=== PATIENT | female | born 1970 | race Asian ===

== ENCOUNTER 2018-02-12 14:53 | Outpatient (CLI) | payer OTHER ==
--- NOTE | 2018-02-13 17:27 | Mammography Report ---
Procedure Date: 02/12/2018 Accession Number: [id number] / [id number] Procedure: MGN - Screening Mammo Dig Bilat CPT Code: FULL RESULT: EXAM: Screening Mammo Dig Bilat DATE: 02/12/2018 3:13 PM CLINICAL HISTORY: 48-year-old female with history of early menses. TECHNIQUE: Bilateral CC, left laterally exaggerated CC, bilateral MLO views were obtained. COMPARISON: 08/20/2014, 01/29/2013. FINDINGS: The breasts demonstrate heterogeneously dense fibroglandular parenchyma bilaterally. No suspicious masses, clustered microcalcifications, or regions of architectural distortion are identified. IMPRESSION: Negative examination RECOMMENDATION: Routine annual screening unless otherwise clinically indicated. BIRADS CATEGORY 1: Negative STANDARD QUALIFYING STATEMENTS: 1. This examination was reviewed with the aid of Computer-Aided Detection (CAD). 2. A negative or benign imaging report should not delay biopsy if clinically suspicious findings are present. Consider surgical consultation if warrented. More than 5% of cancers are not identified by imaging. 3. Dense breasts may obscure an underlying neoplasm.
== END 2018-02-12 14:54 | disposition home or self-care (01) ==
LOC: DI.N 14:53
PROVIDERS: ATTEND Nurse Practitioner Obstetrics & Gynecology
DX: Z12.39 Encounter for other screening for malignant neoplasm of breast (principal)
CPT/HCPCS: 77067

== ENCOUNTER 2019-03-18 08:59 | Outpatient (CLI) | payer OTHER ==
--- NOTE | 2019-03-18 18:11 | XRAY Report ---
Reason: HX OF LATENT TB Procedure Date: 03/18/2019 Accession Number: [id number] / [id number] Procedure: WCP - Chest 2 View X-Ray CPT Code: 02700 FULL RESULT: EXAM: CHEST RADIOGRAPHY. EXAM DATE: 03/18/2019 09:19 AM. CLINICAL HISTORY: History of latent tuberculosis. COMPARISON: None. TECHNIQUE: 2 views. FINDINGS: Lungs/Pleura: No focal opacities evident. No pleural effusion. No pneumothorax. Normal volumes. Mediastinum: Heart and mediastinal contours are unremarkable. Other: There is a mild mid thoracic vertebral compression fracture, of uncertain chronicity. IMPRESSION: 1. No acute cardiopulmonary abnormality demonstrated. 2. Age-indeterminate mild anterior compression deformity of mid thoracic vertebral body, probably T7. 3. No evidence of active or prior tuberculosis demonstrated on this exam. RADIA
== END 2019-03-18 23:59 | disposition home or self-care (01) ==
LOC: DI.WCP 08:59 → EDSTATUS 13:37 → DI.WCP 23:59
PROVIDERS: ATTEND Family Medicine
DX: M43.8X4 Other specified deforming dorsopathies, thoracic region (principal)
CPT/HCPCS: 71046

== ENCOUNTER 2019-05-06 15:51 | Outpatient (CLI) | payer OTHER ==
--- NOTE | 2019-05-07 08:39 | Mammography Report ---
Reason: ROUTINE MAMMO Procedure Date: 05/06/2019 Accession Number: [id number] / [id number] Procedure: MGN - Screening Mammo Dig Bilat CPT Code: Final Report FULL RESULT: EXAM: Screening Mammo Dig Bilat DATE: 05/06/2019 4:15 PM CLINICAL HISTORY: Screening encounter. TECHNIQUE: (B) - Bilateral CC and MLO views were obtained. COMPARISON: 02/12/2018 through 01/29/2013. PARENCHYMAL PATTERN: (D) - The breast(s) demonstrate(s) heterogeneously dense fibroglandular parenchyma. FINDINGS: There are no suspicious masses, calcifications, or areas of distortion. IMPRESSION: Negative examination. BI-RADS category 1. RECOMMENDATION: (ANNUAL) - Recommend routine annual screening mammography. BI-RADS CATEGORY: (1) - Negative. STANDARD QUALIFYING STATEMENTS: 1. This examination was not reviewed with the aid of Computer-Aided Detection (CAD). 2. A negative or benign imaging report should not preclude biopsy if clinically suspicious findings are present. 3. Dense breasts may obscure an underlying neoplasm. 4. This examination was reviewed without the aid of 3D breast imaging (tomosynthesis).
== END 2019-05-06 15:52 | disposition home or self-care (01) ==
LOC: DI.N 15:51
DX: Z12.31 Encounter for screening mammogram for malignant neoplasm of breast (principal)
CPT/HCPCS: 77067

== ENCOUNTER 2020-08-15 08:00 | Outpatient (CLI) | payer OTHER ==
[2020-08-15 18:40] LABS: CHOL/HDL RATIO 4.2 (<4.4); CHOLESTEROL 241 mg/dL; HDL CHOLESTEROL 58 mg/dL; LDL CHOLESTEROL,CALCULATED 149 mg/dL; LDL/HDL RATIO 2.6 (<4.4); VLDL CHOLESTEROL 34 mg/dL
== END 2020-08-15 23:59 | disposition home or self-care (01) ==
LOC: LAB.WCP 08:00
PROVIDERS: ATTEND Obstetrics & Gynecology
DX: Z00.00 Encounter for general adult medical examination without abnormal findings (principal)
CPT/HCPCS: 36415; 80061; 83721

== ENCOUNTER 2020-08-18 15:22 | Outpatient (CLI) | payer OTHER ==
--- NOTE | 2020-08-19 12:32 | Mammography Report ---
BILATERAL DIGITAL SCREENING MAMMOGRAM 3D/2D: 08/18/2020 CLINICAL: Routine screening. Comparison is made to exams dated: 05/06/2019 mammogram, 02/12/2018 mammogram, 08/20/2014 mammogram, an d 01/29/2013 mammogram - [facility]. The tissue of both breasts is heterogeneously d ense. This may lower the sensitivity of mammography. No significant masses, calcifications, or other findings are seen in either breast. There has been no significant interval change. IMPRESSION: NEGATIVE There is no mammographic evidence of malignancy. A 1 year screening mammogram is recommended. This exam was interpreted at Station ID: [id number]. NOTE: For mammograms, a report in lay terms will be sent to the patient. Approximately 15% of breast malignancies will not be visualized mammographically. In the management of a palpable breast mass, a negative mammogram must not discourage biopsy of a clinically suspicious lesion. Electronically Signed By: Sabas Lopez M.D. ddp/penrad:08/18/2020 16:15:17 ACR BI-RADS Category 1: Negative 3341F PARENCHYMAL PATTERN: (D) - The breast(s) demonstrate(s) heterogeneously dense fibroglandular maria de jesus lemus. BI-RADS CATEGORY: (1) - 1 RECOMMENDATION: (ANNUAL) - Recommend routine annual screening mammography. [id number] 1 year screening LATERALITY: (B)
== END 2020-08-18 15:23 | disposition home or self-care (01) ==
LOC: DI.N 15:22
DX: Z12.31 Encounter for screening mammogram for malignant neoplasm of breast (principal)

== ENCOUNTER 2022-04-26 15:13 | Outpatient (CLI) | payer OTHER ==
--- NOTE | 2022-04-27 10:17 | Mammography Report ---
BILATERAL DIGITAL SCREENING MAMMOGRAM 3D/2D: 04/26/2022 CLINICAL: Routine screening. Comparison is made to exams dated: 08/18/2020 mammogram, 05/06/2019 mammogram, 02/12/2018 mammogram, mammogram, and 01/29/2013 mammogram - [facility]. Both breasts are heterogeneously dense, which may obscure small masses (category c / 51-75% glandular tissue). There is a possible new 0.4 cm oval equal density focal asymmetry in the left breast at 8 o'clock mid dle depth. No other significant masses, calcifications, or other findings are seen in either breast. IMPRESSION: INCOMPLETE: NEEDS ADDITIONAL IMAGING EVALUATION The possible new 0.4 cm oval equal density focal asymmetry in the left breast is indeterminate. Nato tional views with possible ultrasound are recommended. Based on the Tyrer Cuzick model (a risk assessment model) the patients lifetime risk is 8.4% and her 10 year risk is 1.9%. According to the ACR, ACS, and NCCN guidelines, an annual breast MRI exam slade g with mammogram is recommended if the patients lifetime risk is 20% or greater. This exam was interpreted at Station ID: [id number]. NOTE: For mammograms, a report in lay terms will be sent to the patient. Approximately 15% of breast malignancies will not be visualized mammographically. In the management of a palpable breast mass, a negative mammogram must not discourage biopsy of a clinically suspicious lesion. Electronically Signed By: Price Pablo M.D. aty/:04/26/2022 22:26:40 ACR BI-RADS Category 0: Incomplete 3340F PARENCHYMAL PATTERN: (D) - The breast(s) demonstrate(s) heterogeneously dense fibroglandular parenchy ma. BI-RADS CATEGORY: (0) - 0 Mammo and [place] [id number] Immediate follow-up LATERALITY: (L)
== END 2022-04-26 15:14 | disposition home or self-care (01) ==
LOC: DI.N 15:13
DX: Z12.31 Encounter for screening mammogram for malignant neoplasm of breast (principal)

== ENCOUNTER 2022-06-07 12:44 | Outpatient (CLI) | payer OTHER ==
--- NOTE | 2022-06-08 10:41 | Mammography Report ---
UNILATERAL LEFT DIGITAL DIAGNOSTIC MAMMOGRAM 3D/2D: 06/07/2022 CLINICAL: Patient returns today to evaluate a focal asymmetry in the left breast. Comparison is made to exams dated: 04/26/2022 mammogram, 08/18/2020 mammogram, 05/06/2019 mammogram, a nd 02/12/2018 mammogram - Located within [facility]. The left breast is heterogeneously dense, which may obscure small masses (category c / 51-75% glandul ar tissue). There is a possible benign focal asymmetry in the left breast at 8 o'clock middle depth. This is not seen in additional views. No other significant masses or calcifications are seen in the breast. IMPRESSION: NEGATIVE There is no mammographic evidence of malignancy. A 1 year screening mammogram is recommended. Based on the Tyrer Cuzick model (a risk assessment model) the patients lifetime risk is 8.4% and her 10 year risk is 1.9%. According to the ACR, ACS, and NCCN guidelines, an annual breast MRI exam slade g with mammogram is recommended if the patients lifetime risk is 20% or greater. This exam was interpreted at Station ID: [id number]. NOTE: For mammograms, a report in lay terms will be sent to the patient. Approximately 15% of breast malignancies will not be visualized mammographically. In the management of a palpable breast mass, a negative mammogram must not discourage biopsy of a clinically suspicious lesion. Electronically Signed By: Adair Armstrong M.D. slc/:06/07/2022 13:06:11 ACR BI-RADS Category 1: Negative 3341F PARENCHYMAL PATTERN: (D) - The breast(s) demonstrate(s) heterogeneously dense fibroglandular maria de jesus lemus. BI-RADS CATEGORY: (1) - 1 RECOMMENDATION: (ANNUAL) - Recommend routine annual screening mammography. [id number] 1 year screening LATERALITY: (B)
== END 2022-06-07 12:45 | disposition home or self-care (01) ==
LOC: DI 12:44
DX: R92.2 Inconclusive mammogram (principal)

== ENCOUNTER 2023-05-09 15:03 | Outpatient (CLI) | payer OTHER ==
--- NOTE | 2023-05-10 15:51 | Mammography Report ---
BILATERAL DIGITAL SCREENING MAMMOGRAM 3D/2D: 05/09/2023 CLINICAL: Routine screening. Comparison is made to exams dated: 06/07/2022 mammogram, 04/26/2022 mammogram, 08/18/2020 mammogram, 1 07/06/2018 mammogram, 02/12/2018 mammogram, and 08/20/2014 mammogram - Located within [facility]. Both breasts are heterogeneously dense, which may obscure small masses (category c / 51-75% glandular tissue). No significant masses, calcifications, or other findings are seen in either breast. There has been no significant interval change. IMPRESSION: NEGATIVE There is no mammographic evidence of malignancy. A 1 year screening mammogram is recommended. Based on the Tyrer Cuzick model (a risk assessment model) the patients lifetime risk is 8.3% and her 10 year risk is 2.0%. According to the ACR, ACS, and NCCN guidelines, an annual breast MRI exam slade g with mammogram is recommended if the patients lifetime risk is 20% or greater. This exam was interpreted at Station ID: [id number]. NOTE: For mammograms, a report in lay terms will be sent to the patient. Approximately 15% of breast malignancies will not be visualized mammographically. In the management of a palpable breast mass, a negative mammogram must not discourage biopsy of a clinically suspicious lesion. Electronically Signed By: Nurys soto/sharla:05/10/2023 08:06:28 letter sent: No_Letter ACR BI-RADS Category 1: Negative 3341F PARENCHYMAL PATTERN: (D) - The breast(s) demonstrate(s) heterogeneously dense fibroglandular maria de jesus lemus. BI-RADS CATEGORY: (1) - 1 Mammogram [id number] 1 year screening LATERALITY: (B)
== END 2023-05-09 15:04 | disposition home or self-care (01) ==
LOC: DI.N 15:03
PROVIDERS: ATTEND Registered Nurse
DX: Z12.31 Encounter for screening mammogram for malignant neoplasm of breast (principal); R92.333 Mammographic heterogeneous density, bilateral breasts